=== PATIENT | female | born 1950 | race Two or more races ===

== ENCOUNTER 2019-02-15 12:05 | Emergency (ER) | payer OTHER ==
[2019-02-15 12:16] VITALS: BMI 23.0
[2019-02-15 13:42] LABS: BASO % 0.5 % (0-2.0); EOS % 1.1 % (0-4.5); HEMATOCRIT 37.6 % (32.4-45.2); HEMOGLOBIN 12.8 GM/dL (10.7-15.3); LYMPH % 27.1 % (8-40); MCH 29.8 pg (25.7-33.7); MCHC 33.9 g/dl (32.0-36.0); MEAN CELL VOLUME 87.8 fl (80-96); MEAN PLT VOLUME 8.3 fl (7.5-11.1); MONO % 4.2 % (3.8-10.2); NEUT % 67.1 % (42.8-82.8); PLATELET COUNT 215 K/MM3 (134-434); RBC 4.29 M/mm3 (3.60-5.2); RDW 13.4 % (11.6-15.6); WHITE BLOOD COUNT 5.4 K/mm3 (4.0-10.0)
--- NOTE | 2019-02-15 13:49 | PDOC ---
History of Present Illness - General Chief Complaint: Blood Pressure Problem Stated Complaint: SENT BY PCP/BP PROBLEM/COUGH Time Seen by Provider: 02/15/19 12:36 History Source: Patient Exam Limitations: No Limitations - History of Present Illness Initial Comments: 02/15/19 13:09 68-year-old female with history of hypertension diabetes and dyslipidemia presents to ED with complaints of cough for the past few days. Patient states went to her PCP today and was told to come to the ER secondary to elevated BP reading x2. Patient states for the past 2 days has not taken her medication on due to the cough but has been taking honey lemon and tea. Patient was given her medication for hypertension in the clinic by the physician. Patient denies headache, visual changes, chest pain, dizziness, nausea, lower extremity edema, shortness of breath, or change in urine pattern. Is this a multiple visit Asthma Patient?: No Timing/Duration: other Severity: mild Associated Symptoms: reports: cough Past History - Travel Traveled outside of the country in the last 30 days: No Close contact w/someone who was outside of country & ill: No - Past Medical History Allergies/Adverse Reactions: Allergies Allergy/AdvReac Type Severity Reaction Status Date / Time Penicillins Allergy Verified 02/15/19 12:16 ibuprofen AdvReac Verified 02/15/19 12:16 Home Medications: Ambulatory Orders Amlodipine Besylate 5 mg PO DAILY 02/15/19 Chlorpheniramine/Dextromethorp [Coricidin Hbp Cough & Cold Tab] 1 each PO TID PRN #21 tablet 02/15/19 Glipizide Xl [Glucotrol Xl -] 5 mg PO DAILY 02/15/19 Lisinopril/Hydrochlorothiazide [Lisinopril-Hctz 10-12.5 mg Tab] 1 each PO DAILY 02/15/19 COPD: No Diabetes: Yes HTN: Yes Hypercholesterolemia: Yes - Psycho Social/Smoking Cessation Hx Smoking Status: No Smoking History: Never smoked Number of Cigarettes Smoked Daily: 0 Patient Lives Alone: Yes Lives with/in: lives alone Review of Systems - Review of Systems Able to Perform ROS?: Yes Constitutional: No: Symptoms Reported HEENTM: No: Symptoms Reported Respiratory: Yes: Cough Cardiac (ROS): No: Symptoms Reported ABD/GI: No: Symptoms Reported Integumentary: No: Symptoms Reported Neurological: No: Symptoms reported Endocrine: No: Symptoms Reported Hematologic/Lymphatic: No: Symptoms Reported *Physical Exam - Vital Signs Last Vital Signs Temp Pulse Resp BP Pulse Ox 97.4 F L 93 H 17 181/87 H 98 02/15/19 12:11 02/15/19 13:35 02/15/19 13:35 02/15/19 13:35 02/15/19 13:35 - Physical Exam General Appearance: Yes: Nourished, Appropriately Dressed. No: Apparent Distress HEENT: positive: EOMI, LEYDI, TMs Normal, Pharynx Normal. negative: Pale Conjunctivae Neck: positive: Supple Respiratory/Chest: positive: Lungs Clear, Normal Breath Sounds. negative: Respiratory Distress, Accessory Muscle Use Cardiovascular: positive: Regular Rhythm, Regular Rate. negative: Murmur Gastrointestinal/Abdominal: positive: Soft. negative: Tenderness Musculoskeletal: negative: CVA Tenderness Extremity: positive: Normal Range of Motion Integumentary: positive: Normal Color, Warm, Moist Neurologic: positive: Motor Strength 5/5 (ambulatory) ED Treatment Course - LABORATORY CBC & Chemistry Diagram: 02/15/19 13:25 02/15/19 12:55 - RADIOLOGY Radiology Studies Ordered: Category Date Time Status CHEST PA & LAT [RAD] Stat Radiology 02/15/19 12:55 Ordered Medical Decision Making - Medical Decision Making 02/15/19 13:53 Chief complaint: Patient sent here by PCP secondary to elevated blood pressure despite patient being asymptomatic. Patient did not take her blood pressure medication for the past 2 days secondary to cough stating she needed to "rest her body". Patient given amlodipine and lisinopril prior to arrival Exam: Patient blood pressure repeated 181/82, lungs clear to auscultation no active coughing during my exam Plan: Labs, urine, chest x-ray and EKG ordered. 02/15/19 16:26 Laboratory Tests 02/15/19 02/15/19 02/15/19 12:55 12:55 13:25 WBC 5.4 Hgb 12.8 Hct 37.6 Plt Count 215 MPV 8.3 D Neutrophils % 67.1 D Sodium 131 L Potassium 3.9 Chloride 98 Carbon Dioxide 26 Anion Gap 7 L BUN 9.5 Creatinine 0.6 Est GFR (CKD-EPI)AfAm 108.55 Est GFR (CKD-EPI)NonAf 93.66 Random Glucose 163 H Calcium 9.0 Magnesium 2.2 Total Bilirubin 0.4 AST 15 ALT 22 Alkaline Phosphatase 97 Creatine Kinase 84 Troponin I < 0.02 Ur Specific [place] Urine Nitrite Urine Bilirubin Ur Leukocyte Esterase 02/15/19 13:25 WBC Hgb Hct Plt Count MPV Neutrophils % Sodium Potassium Chloride Carbon Dioxide Anion Gap BUN Creatinine Est GFR (CKD-EPI)AfAm Est GFR (CKD-EPI)NonAf Random Glucose Calcium Magnesium Total Bilirubin AST ALT Alkaline Phosphatase Creatine Kinase Troponin I Ur Specific [place] 1.007 L Urine Nitrite Negative Urine Bilirubin Negative Ur Leukocyte Esterase Negative Patient asking to eat since she states did not eat today. Patient repeat blood pressure 162/87 with a heart rate of 94. Patient remains asymptomatic. Patient 's sodium was 131. Patient has a cup of chicken noodle soup purchased from the caf which I recommended patient eat prior to discharge. 02/15/19 16:28 Discharge - Discharge Information Problems reviewed: Yes Clinical Impression/Diagnosis: Hypertension, Cough Condition: Improved Disposition: HOME - Additional Discharge Information Prescriptions: Chlorpheniramine/Dextromethorp [Coricidin Hbp Cough & Cold Tab] 1 each PO TID PRN #21 tablet PRN Reason: Cough - Follow up/Referral Referrals: Rachel Dockery, [employer] [Primary Care Provider] - - Patient Discharge Instructions Patient Printed Discharge Instructions: DI for Cough -- Adult, DI for High Blood Pressure Additional Instructions: Although you complain of nasal congestion and cough this cough may be related to the VIRAJ inhibitor you are currently on. I recommend using medication prescribed today. Please take your medication for high blood pressure every day. Print Language: GEORGIAN - Post Discharge Activity Work/Back to School Note: Back to Work
[2019-02-15 14:03] LABS: ALBUMIN 3.8 g/dl (3.4-5.0); BILIRUBIN,TOTAL 0.4 mg/dL (0.2-1); BLOOD UREA NITROGEN 9.5 mg/dL (7-18); CREATININE 0.6 mg/dL (0.55-1.3); MAGNESIUM 2.2 mg/dL (1.8-2.4); POTASSIUM 3.9 mmol/L (3.5-5.1); TOT PROT 7.1 g/dl (6.4-8.2)
[2019-02-15 14:07] LABS: EPI CELLS 0.1 /HPF (0-5/HPF); HYALINE CASTS 0 /lpf (0-8); URINE APPEARANCE CLEAR; URINE BACTERIA 0.8 /hpf (NEGATIVE); URINE BILIRUBIN NEGATIVE (NEGATIVE); URINE COLOR YELLOW; URINE GLUCOSE (UA) NEGATIVE (NEGATIVE); URINE KETONE NEGATIVE (NEGATIVE); URINE LEUK ESTERASE NEGATIVE (NEGATIVE); URINE NITRITE NEGATIVE (NEGATIVE); URINE PROTEIN NEGATIVE (NEGATIVE); URINE RBC 2 /hpf (0-4); URINE UROBILINOGEN 0.2 mg/dL (0.2-1.0); URINE WBC 0 /hpf (0-5)
[2019-02-15] MEDS ORDERED: ACETAMINOPHEN 325 MG TABLET (FP) PO ONE (16:24)
[2019-02-15] MEDS ORDERED: ACETAMINOPHEN 325 MG TABLET (FP) ONE (16:27)
[2019-02-15 17:03] VITALS: BP 162/87; PULSE 94; TEMP 97.6
== END 2019-02-15 17:03 | disposition home or self-care (01) ==
LOC: JER 12:05
DX: I10 Essential (primary) hypertension (principal); R05 Cough; E11.9 Type 2 diabetes mellitus without complications; Z79.84 Long term (current) use of oral hypoglycemic drugs; E78.00 Pure hypercholesterolemia, unspecified; Z88.0 Allergy status to penicillin; Z88.6 Allergy status to analgesic agent
CPT/HCPCS: 36415; 71046-TC-FY; 80053; 81003; 82550; 83735; 84484; 85025; 99283-25

== ENCOUNTER 2021-02-20 14:07 | Emergency (ER) | payer OTHER ==
[2021-02-20 14:50] VITALS: BP 139/78; PULSE 98; TEMP 97.8; BMI 25.7
== END 2021-02-20 16:10 | disposition home or self-care (01) ==
LOC: JERFT 14:07
DX: T23.032A Burn of unspecified degree of multiple left fingers (nail), not including thumb, initial encounter (principal); X11.0XXA Contact with hot water in bath or tub, initial encounter
CPT/HCPCS: 99281-25

== ENCOUNTER 2023-08-04 08:36 | Emergency (ER) | payer OTHER ==
[2023-08-04 08:44] VITALS: BP 157/83; PULSE 86; RESP 18; TEMP 98.3; BMI 24.7
[2023-08-04] MEDS ORDERED: ACETAMINOPHEN 500 MG TABLET (FP) ONE (10:11)
[2023-08-04] MEDS: ACETAMINOPHEN 500 MG TABLET (FP) PO ONE (10:12)
== END 2023-08-04 11:52 | disposition home or self-care (01) ==
LOC: JERFT 08:36
DX: M25.561 Pain in right knee (principal)
CPT/HCPCS: 73564-TC-RT-FY; 99283-25

== ENCOUNTER 2023-10-11 12:31 | Emergency (ER) | payer OTHER ==
[2023-10-11 12:42] VITALS: BP 140/65; PULSE 95; RESP 18; TEMP 98.7; BMI 31.3
[2023-10-11] MEDS ORDERED: ACETAMINOPHEN 500 MG TABLET (FP) ONE (13:13)
[2023-10-11] MEDS: ACETAMINOPHEN 500 MG TABLET (FP) PO ONE (13:16)
== END 2023-10-11 14:20 | disposition home or self-care (01) ==
LOC: JERFT 12:31
DX: M17.12 Unilateral primary osteoarthritis, left knee (principal)
CPT/HCPCS: 73562-TC-LT-FY; 99283-25

== ENCOUNTER 2023-11-28 16:51 | Emergency (ER) | payer OTHER ==
[2023-11-28 16:57] VITALS: BP 149/79; PULSE 91; RESP 18; TEMP 99.3; BMI 30.1
[2023-11-28] MEDS ORDERED: ACETAMINOPHEN 500 MG TABLET (FP) ONE (18:02)
[2023-11-28] MEDS: ACETAMINOPHEN 500 MG TABLET (FP) PO ONE (18:06)
== END 2023-11-28 19:58 | disposition home or self-care (01) ==
LOC: JER 16:51 → JERFT 16:51
DX: M25.562 Pain in left knee (principal); G89.29 Other chronic pain; M79.89 Other specified soft tissue disorders
CPT/HCPCS: 73562-TC-LT-FY; 93971-TC; 99283-25